=== PATIENT | male | born 1970 | race Caucasian/White ===

== ENCOUNTER 2018-01-26 20:28 | Observation (INO) | payer OTHER ==
--- NOTE | 2018-01-26 22:11 | EDPHY ---
H & P Stated Complaint: left knee, fell last week, was seen, no stitiches, now swollen and painful Time Seen by Provider: 01/26/18 22:11 HPI/ROS: HPI CHIEF COMPLAINT: Increasing left knee pain HISTORY OF PRESENT ILLNESS: This is a 47-year-old male, otherwise healthy, nondiabetic, he states on Wednesday he fell over cord at work landing on his left knee is left knee hit a side of a metal chair. He sustained a 3 cm anterior left knee laceration. He chose not to seek medical attention for this. He was told that it may need stitches however he decided not to get it evaluated. Is had a scab on it. He presents emergency room tonight as he states he picked the scab off earlier and noticed that the area was inflamed and red. Now having more pain. No fever. He does have full range of motion of his knee. Denies any significant knee pain inside in the ER behind the knee but has localized tenderness right where the cut is. Past Medical History: Denies significant medical history Past Surgical History: Bilateral hip replacement Social History: Denies daily use of drugs alcohol tobacco. Family History: Noncontributory ROS REVIEW OF SYSTEMS: A comprehensive 10 point review of systems is otherwise negative aside from elements mentioned in the history of present illness. Exam Constitutional triage nursing summary reviewed, vital signs reviewed, awake/ alert. Eyes normal conjunctivae and sclera, EOMI, PERRLA. HENT normal inspection, atraumatic, moist mucus membranes, no epistaxis, neck supple/ no meningismus, no raccoon eyes. Respiratory clear to auscultation bilaterally, normal breath sounds, no respiratory distress, no wheezing. Cardiovascular rate normal, regular rhythm, no murmur, no edema, distal pulses normal. Gastrointestinal soft, non-tender, no rebound, no guarding, normal bowel sounds, no distension, no pulsatile mass. Genitourinary no CVA tenderness. Musculoskeletal left lower extremity: Anterior over the patella there is a 3 cm laceration with a half scab on it. The other piece of the scab was picked off, there is surrounding erythema. No significant fluctuance. No abscess visualized. There is mild cellulitis around this laceration. No pus. He has full range of motion of his left knee, no crepitus, no posterior knee pain, distally neurovascular intact good distal pulse, good cap refill, no streaking, no palpable cord. no midline vertebral tenderness, full range of motion, no calf swelling, no tenderness of extremities, no meningismus, good pulses, neurovascularly intact. Skin pink, warm, & dry, no rash, skin atraumatic. Neurologic awake, alert and oriented x 3, AAOx3, moves all 4 extremities equally, motor intact, sensory intact, CN II-XII intact, normal cerebellar, normal vision, normal speech. Psychiatric normal mood/affect. Heme/Lymph/Immune no lymphadenopathy. Differential Diagnosis: Includes but is not limited to in a particular order infected laceration, foreign body, cellulitis, cellulitis over the patella, septic joint Medical Decision Making: Plan for this patient x-ray left knee to rule out foreign body, check basic blood work, ESR CRP, 2 g of IV Ancef will be given. Re-evaluation: 1219: Patient re-evaluated this time significant erythema head tenderness to the anterior left knee. No evidence of septic joint exam. Blood work has been reviewed does show an elevated white blood cell count. Given his elevated white blood cell count, erythema over his knee he additionally has hardware in his left hip, I am concerned for this cellulitis tracking or potentially going into his knee or potentially seeding his left hip hardware. We discussed about going home versus staying overnight in the hospital for IV antibiotics and further evaluation make sure this goes the right way he would prefer this. Will admit to the hospitalist service for left lower extremity cellulitis. 2 g of Ancef have been given in emergency room. Additionally morphine and Zofran as been ordered for pain control. IV fluids. Spoke with the hospitalist service Dr. Cabrera, Agrees to admit Source: Patient - Personal History Current Tetanus/Diphtheria Vaccine: Yes Tetanus Vaccine Date: 2016 - Medical/Surgical History Hx Asthma: No Hx Chronic Respiratory Disease: No Hx Diabetes: No Hx Cardiac Disease: No Hx Renal Disease: No Hx Cirrhosis: No Hx Alcoholism: No Hx HIV/AIDS: No Hx Splenectomy or Spleen Trauma: No Other PMH: bilat hip replacements, cortosone low back, hep b 1987 - Social History Smoking Status: Never smoked Constitutional: Initial Vital Signs Temperature (C) 36.8 C 01/26/18 20:30 Heart Rate 96 01/26/18 20:30 Respiratory Rate 20 01/26/18 20:30 Blood Pressure 158/100 H 01/26/18 20:30 O2 Sat (%) 95 01/26/18 20:30 O2 Delivery Mode Room Air Allergies/Adverse Reactions: No Known Allergies Allergy (Unverified 01/26/18 20:30) Home Medications: Medication Instructions Recorded Aspirin 01/26/18 Medical Decision Making - Diagnostics Imaging Results: Imaging Impressions Knee X-Ray 01/26/18 22:18 Impression: No fracture of the left knee. - Data Points Laboratory Results: Laboratory Results 01/26/18 22:40 01/26/18 22:40 01/26/18 01/26/18 22:40 22:40 WBC 14.03 10^3/uL H 10^3/uL (3.80-9.50) RBC 5.06 10^6/uL 10^6/uL (4.40-6.38) Hgb 15.5 g/dL g/dL (13.7-17.5) Hct 44.9 % % (40.0-51.0) MCV 88.7 fL fL (81.5-99.8) MCH 30.6 pg pg (27.9-34.1) MCHC 34.5 g/dL g/dL (32.4-36.7) RDW 14.2 % % (11.5-15.2) Plt Count 206 10^3/uL 10^3/uL (150-400) MPV 9.4 fL fL (8.7-11.7) Neut % (Auto) 73.7 % % (39.3-74.2) Lymph % (Auto) 17.4 % % (15.0-45.0) [place] % (Auto) 6.8 % % (4.5-13.0) Eos % (Auto) 0.0 % L % (0.6-7.6) Baso % (Auto) 0.4 % % (0.3-1.7) Nucleat RBC Rel Count 0.0 % % (0.0-0.2) Absolute Neuts (auto) 10.33 10^3/uL H 10^3/uL (1.70-6.50) Absolute Lymphs (auto) 2.44 10^3/uL 10^3/uL (1.00-3.00) Absolute Monos (auto) 0.96 10^3/uL H 10^3/uL (0.30-0.80) Absolute Eos (auto) 0.00 10^3/uL L 10^3/uL (0.03-0.40) Absolute Basos (auto) 0.06 10^3/uL 10^3/uL (0.02-0.10) Absolute Nucleated RBC 0.00 10^3/uL 10^3/uL (0-0.01) Immature Gran % 1.7 % H % (0.0-1.1) Immature Gran # 0.24 10^3/uL H 10^3/uL (0.00-0.10) ESR 1 MM/HR MM/HR (0-15) Sodium 136 mEq/L mEq/L (135-145) Potassium 4.1 mEq/L mEq/L (3.3-5.0) Chloride 101 mEq/L mEq/L (97-110) Carbon Dioxide 28 mEq/l mEq/l (22-31) Anion Gap 7 mEq/L L mEq/L (8-16) BUN 12 mg/dL mg/dL (7-23) Creatinine 0.9 mg/dL mg/dL (0.7-1.3) Estimated GFR > 60 Glucose 87 mg/dL mg/dL (70-100) Calcium 8.6 mg/dL mg/dL (8.5-10.4) C-Reactive Protein 14.3 mg/L H mg/L (<10.0) Medications Given: Discontinued Medications Sodium Chloride (Ns) 1,000 mls @ 0 mls/hr IV EDNOW ONE; Wide Open PRN Reason: Protocol Stop: 01/26/18 22:18 Last Admin: 01/26/18 22:38 Dose: 1,000 mls Cefazolin Sodium/Dextrose (Ancef 2 Gm) 100 mls @ 200 mls/hr IV EDNOW ONE PRN Reason: Protocol Stop: 01/26/18 22:47 Last Admin: 01/26/18 22:54 Dose: 100 mls Ibuprofen (Motrin) 600 mg PO EDNOW ONE Stop: 01/26/18 22:57 Last Admin: 01/26/18 22:58 Dose: 600 mg Morphine Sulfate (Morphine) 4 mg IVP EDNOW ONE Stop: 01/26/18 22:51 Last Admin: 01/26/18 22:55 Dose: Not Given Ondansetron HCl (Zofran) 4 mg IVP EDNOW ONE Stop: 01/26/18 22:51 Last Admin: 01/26/18 22:55 Dose: 4 mg Departure - Departure Disposition: [facility] Inpatient Acute Clinical Impression: Cellulitis Qualifiers: Site of cellulitis: extremity Site of cellulitis of extremity: lower extremity Laterality: left Qualified Code(s): L03.116 - Cellulitis of left lower limb Condition: Fair Referrals: NONE *PRIMARY CARE P,. [Primary Care Provider] - As per Instructions
[2018-01-26] MEDS ORDERED: NS 1,000 ML IV ONE (22:17)
[2018-01-26] MEDS ORDERED: ceFAZolin 2 GM/DEXTROSE 100 ML IV ONE (22:18)
[2018-01-26] MEDS ORDERED: ONDANSETRON 4 MG/2 ML VIAL IVP ONE (22:50)
[2018-01-26] MEDS ORDERED: ONDANSETRON 4 MG/2 ML VIAL ONE (22:51)
[2018-01-26 22:56] LABS: PLATELET COUNT 206 10^3/uL (150-400)
[2018-01-26] MEDS ORDERED: IBUPROFEN 600 MG TAB PO ONE (22:56)
[2018-01-27] MEDS ORDERED: ONDANSETRON 4 MG/2 ML VIAL IVP PRN (00:25)
[2018-01-27] MEDS ORDERED: LORazepam 0.5 MG TAB PO PRN (00:25)
[2018-01-27] MEDS ORDERED: HYDROCODONE/APAP 5/325 TAB PO PRN (00:25)
[2018-01-27] MEDS ORDERED: ACETAMINOPHEN 325 MG TAB PO PRN (00:25)
[2018-01-27] MEDS ORDERED: NS 1,000 ML IV SCH (00:30)
[2018-01-27] MEDS ORDERED: HYDROCODONE/APAP 5/325 TAB PO ONE (00:37)
--- NOTE | 2018-01-27 05:39 | GHP ---
[f rep st] HISTORY AND PHYSICAL DATE OF ADMISSION: 01/27/2018 The patient's PCP is unlisted. SOURCE: Patient provides history, appears reliable. EMR was reviewed and case discussed with ED pro vider. CHIEF COMPLAINT: Left knee pain and swelling. HISTORY OF PRESENT ILLNESS: This is a pleasant 47-year-old gentleman with past medical history signi ficant for gout, osteoarthritis, chronic back pain, HPV, who presents to the emergency department tonataliia mclaughlin with complaints of 1-day history of redness and swelling, increasing pain in the left knee. Patimilo escobar sustained an injury approximately 3 days ago. He tripped and fell at work on a metal chair. He s ubsequently had an approximately 2-3 cm laceration on the left knee. He had been doing well, but did not seek any medical evaluation after this point. He reports that today, he did have some subjectiv e fevers. No chills. No nausea or vomiting. The patient had increasing pain and swelling since thi s afternoon with pain radiating down to his foot. He also reports some difficulties with ambulating. He reports he has decreased range of motion in the left knee, but all of his pain is located anteri or at the site of scab. The patient reported severe pain in the emergency department that appeared t o be out of proportion to the injury. When he came in, patient reports that his pain was 6/10. Curr ently, patient states that his pain is completely controlled after Beverly on the medical floor. 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 He did pick the scab off th e knee and states that he had a little bit of bleeding. No purulent drainage. Given worsening sympt oms, he presents to the emergency department for evaluation this morning. REVIEW OF SYSTEMS: Negative except as noted above. ALLERGIES: No known drug allergies. HOME MEDICATIONS: [id number] aspirin, Tylenol. PAST MEDICAL HISTORY: Significant for HPV, gout, osteoarthritis, chronic back pain. PAST SURGICAL HISTORY: 1. Bilateral hip replacement. 2. Steroid injection in the back. FAMILY HISTORY: Father with bladder cancer. Mother with lung cancer. Patient with siblings that ar e healthy. SOCIAL HISTORY: Patient chews tobacco. He is employed. He occasionally drinks, but nothing on a da evelyne basis. No illicit drugs or marijuana. COR STATUS: Full. PHYSICAL EXAMINATION: VITAL SIGNS: Upon arrival to the emergency department, blood pressure is 158/ 100, heart rate 96, respiratory rate 20, O2 saturation is 95% on room air with temperature 36.8. Blo od pressure currently 153/90, heart rate 72, respiratory rate 18, O2 saturation 91% on room air with temperature 36.6. GENERAL: No acute distress, pleasant adult gentleman is lying quietly in bed aslee p. He does appear to have some discomfort when he moves his left knee. HEAD: Normocephalic, atraum atic. EYES: Extraocular muscles are intact. Pupils equal, round, symmetric. No scleral icterus or conjunctival injection. ENT: Mucous membranes appear slightly dry. No oropharyngeal erythema or e xudates. Dentition intact. NECK: Supple. Trachea midline. CV: Regular rate and rhythm. No murm urs, rubs, or gallops appreciated. RESPIRATORY: Unlabored breathing. LUNGS: Clear to auscultation bilaterally. No wheezes, rales, or rhonchi appreciated. ABDOMEN: Positive bowel sounds. Soft, no ntender to palpation. No rebound, guarding, or masses appreciated. : No suprapubic tenderness to palpation. No Kim catheter in place. EXTREMITIES: Patient without any cyanosis, clubbing, or ed ray. Inspection of the lower legs showed that he has multiple healing scabs. He does have a recentl y opened scab on the left anterior knee over the patella. There is area of induration just below the scab, but there is no fluctuance. No expressible drainage. Erythema extends around the scab approx imately 5 cm in diameter. He does not appear to have any streaking. He has some erythema on the med ial aspect of the left leg; however, he was lying on that side when I entered the room. NEURO: Cuauhtemoc sly nonfocal. No facial drooping. Moves all extremities. Strength grossly intact with some limitat ions of the left knee. PSYCH: Thought process, content and questions are all appropriate. Patient without any agitation. LABORATORY STUDIES: WBC 14.03, H and H 15.5 and 44.9, MCV of 88.7, platelet count is 206. Bands 1.7 %. ESR is 1. Sodium 136, potassium 4.1, chloride 101, CO2 28, anion gap 7, BUN 12, creatinine 0.9, GFR greater than 60, glucose 87, calcium is 8.6. CRP is 14.3. IMAGING STUDY: Report and image reviewed of left knee: Negative for any fracture. Medial soft tiss ue swelling noted. ASSESSMENT AND PLAN: Pleasant 47-year-old gentleman presents following a knee injury with erythema, swelling and pain. 1. Left knee cellulitis. Does not appear to be any involvement of the joint itself. It is superfic ial. Patient has received Ancef and has already noted some improvement in his erythema and pain. He has Beverly p.r.n., but does not want any further medications as he plans to drive home if discharged later today. 2. Leukocytosis secondary to cellulitis. No evidence of sepsis criteria. Intravenous fluids. Repe at CBC. 3. Elevated blood pressure. Patient without any previous history of hypertension. Will continue to monitor and pain control as noted above. 4. Fluid, electrolyte, nutrition and intravenous fluids as noted above. Diet as tolerated. Electrol yte monitoring replacement if needed. 5. Prophylaxis. Sequential compression devices. Holding anticoagulation. Low risk. Encourage amb ulation. COR STATUS: Full. DISPOSITION: Patient admitted to observation status on the medical floor at this time pending improv ement with IV antibiotics. Possible discharge later today as per day hospitalist and transition to p .o. /[id number]/MODL
[2018-01-27 05:48] LABS: PLATELET COUNT 178 10^3/uL (150-400)
[2018-01-27 07:40] VITALS: BP 126/80
[2018-01-27] MEDS ORDERED: ENOXAPARIN 40 MG/0.4 ML SYR SC SCH (09:00)
--- NOTE | 2018-01-27 10:13 | HOSPPROG ---
Hospitalist Progress Note Assessment/Plan: Patient is a 47 y/o who presented to the ER today with swelling and redness to his left knee. Approximately 3 days ago he tripped at work and fell on his knee and had a laceration. *left knee cellulitis -treated with Ancef -dc home on Keflex due to significant improvement *Leukocytosis -improved, still elevated *Elevated bp -improved this morning *Plan: dc home w f/u with his PCP Subjective: Sal is anxious to leave this morning. Objective: Vital Signs Temp Pulse Resp BP Pulse Ox 36.6 C 60 16 126/80 H 93 01/27/18 07:37 01/27/18 07:37 01/27/18 07:37 01/27/18 07:37 01/27/18 07:37 Laboratory Results 01/27/18 04:45 01/26/18 01/27/18 01/28/18 05:59 05:59 05:59 Intake Total 2100 Balance 2100 - Physical Exam Constitutional: obese Eyes: PERRL Ears, Nose, Mouth, Throat: hearing normal Respiratory: no respiratory distress Skin: warm, other (left knee with approximately quarter size of redness with a scab that is healing, no purulence noted) Musculoskeletal: full muscle strength Neurologic: AAOx3 ICD10 Worksheet Patient Problems: Problems Problem Status Onset Cellulitis Acute
--- NOTE | 2018-01-27 11:11 | GDS ---
[f rep st] DISCHARGE SUMMARY DISCHARGE DIAGNOSES: 1. Left knee cellulitis. 2. Leukocytosis. 3. Elevated blood pressure. HISTORY OF PRESENT ILLNESS: Briefly, the patient is a 47-year-old male with a past medical history for gout, osteoarthritis, and chronic back pain, who presented to the emergency room with complaints of swelling to his left knee and injury approximately 3 days ago when he tripped at work and fell on a metal chair. He had approximately a 2-3 cm laceration on the left knee. The patient reported severe pain in the emergency department that appeared to be out of proportion to his injury. Today, during my interview, he is feeling markedly better. There is no purulence noted from the knee area. He will be discharged home and further follow up with his primary care provider. HOSPITAL COURSE BY PROBLEM: 1. Left knee cellulitis. I have reviewed his images, left knee. It is negative for any fractures. He improved significantly with Ancef. He is not having any significant pain today. Will follow up with his PCP. He has had a recent tetanus shot. 2. Leukocytosis. No evidence of sepsis. Improved. 3. Elevated blood pressure. This was elevated when he was admitted. It stabilized today. DISCHARGE CONDITION: Stable. PHYSICAL EXAMINATION: VITAL SIGNS: Blood pressure is 126/80, respiratory rate is 16, pulse is 60, temperature is 36.6 Celsius. O2 sats on room air are 96%. MEDICATIONS AT DISCHARGE: Please see the EMR. DISCHARGE INSTRUCTIONS: 1. Take the antibiotic as prescribed. If his knee remains red, or becomes painful, or he develops a fever, to see his primary care provider. 2. Elevate his legs 3 times a day above his heart. /[id number]/MODL MTDD
== END 2018-01-27 11:20 | disposition home or self-care (01) ==
LOC: F3E 01-27 02:30
PROVIDERS: ADMIT Family Medicine; ATTEND Family Medicine
DX: L03.116 Cellulitis of left lower limb (principal); R03.0 Elevated blood-pressure reading, without diagnosis of hypertension
CPT/HCPCS: 73564; 96361; 96365; 96375; 99285; G0378; J0690; J1650; J2270; J2405